=== PATIENT | male | born 1955 | race Caucasian/White ===

== ENCOUNTER → 2020-02-19 13:04 | Outpatient (BNVA) | payer SELFPAY | PROVIDERS: PCP Family Medicine; Visit Provider Internal Medicine Rheumatology | DX: M19.041 Primary osteoarthritis, right hand (principal); Z79.899 Other long term (current) drug therapy; Z11.59 Encounter for screening for other viral diseases; Z11.1 Encounter for screening for respiratory tuberculosis; M19.042 Primary osteoarthritis, left hand | CPT/HCPCS: 36415; 99204 ==

== ENCOUNTER 2020-02-19 14:35 | Outpatient (CLI) | payer OTHER, SELFPAY ==
--- NOTE | 2020-02-19 15:07 | XR_ITS ---
WS: [id number] RIGHT HAND: 3 VIEW(S) TECHNIQUE: PA, oblique and lateral. HISTORY: rheumatoid arthritis COMPARISON: 07/26/2016 Narrowing of the interphalangeal joints and the second and third metacarpal phalangeal joints. No def inite erosions. Mild narrowing of the first carpometacarpal joint. No soft tissue or bone abnormality. XR/XR hand RT min 3V* [id number] IMPRESSION: Findings most consistent with osteoarthritis, similar to the prior study.
--- NOTE | 2020-02-19 15:07 | XR_ITS ---
WS: [id number] LEFT HAND: 3 VIEW(S) TECHNIQUE: PA, oblique and lateral. HISTORY: rheumatoid arthritis COMPARISON: 07/26/2016 No acute fracture or dislocation. Mild narrowing of the interphalangeal joints. Mild hypertrophic bone formation involving the second a nd third metacarpal heads. No erosions. XR/XR hand LT min 3V* [id number] IMPRESSION: Mild osteoarthritis, similar to the prior study.
--- NOTE | 2020-02-19 15:07 | XR_ITS ---
WS: [id number] LEFT FOOT: 3 VIEW(S) TECHNIQUE: AP, oblique and lateral. HISTORY: rheumatoid arthritis COMPARISON: 07/26/2016 No acute fracture or dislocation. Mild interphalangeal joint space narrowing. No erosions. Hammertoe deformities. Enthesopathy Achilles tendon. No soft tissue abnormality or bone destruction. XR/XR foot LT min 3V* [id number] IMPRESSION: No erosions or osteopenia. Mild osteoarthritis.
--- NOTE | 2020-02-19 15:07 | XR_ITS ---
WS: [id number] CHEST 2 VIEWS HISTORY: rheumatoid arthritis COMPARISON: None available. Lungs: Clear with no abnormality. No pleural effusion or pneumothorax. Cardiac size: Normal. Mediastinum/Aorta: Calcified RIGHT paratracheal lymph node. Mild atherosclerosis aorta. Bones: Normal. XR/XR chest 2V* [id number] IMPRESSION: No acute cardiopulmonary disease. Mild atherosclerosis aorta.
--- NOTE | 2020-02-19 15:07 | XR_ITS ---
WS: [id number] RIGHT FOOT: 3 VIEW(S) TECHNIQUE: AP, oblique and lateral. HISTORY: rheumatoid arthritis COMPARISON: None available. No acute fracture or dislocation. Severe narrowing of the first metatarsophalangeal joint with osteophytes. Hammertoe deformities. No e rosions. Distal arterial calcifications. XR/XR foot RT min 3V* [id number] IMPRESSION: Advanced osteoarthritis at the first metatarsophalangeal joint. No erosions.
== END 2020-02-19 14:36 | disposition home or self-care (01) ==
PROVIDERS: PCP Family Medicine; Visit Provider Internal Medicine Rheumatology
DX: M05.9 Rheumatoid arthritis with rheumatoid factor, unspecified (principal); M19.042 Primary osteoarthritis, left hand; M19.072 Primary osteoarthritis, left ankle and foot; M19.071 Primary osteoarthritis, right ankle and foot; I70.0 Atherosclerosis of aorta; Z79.899 Other long term (current) drug therapy
CPT/HCPCS: 71046; 73130; 73630; 80076; 82306; 82565; 85025; 85651; 86140; 86431; 86480; 86704; 86803; 87340

== ENCOUNTER → 2020-03-19 10:33 | Outpatient (BNVA) | payer OTHER, SELFPAY | PROVIDERS: PCP Family Medicine; Visit Provider Internal Medicine Rheumatology | DX: M06.041 Rheumatoid arthritis without rheumatoid factor, right hand (principal); M06.042 Rheumatoid arthritis without rheumatoid factor, left hand; M19.041 Primary osteoarthritis, right hand; M19.042 Primary osteoarthritis, left hand; Z79.899 Other long term (current) drug therapy | CPT/HCPCS: 99214 ==

== ENCOUNTER → 2020-08-27 14:24 | Outpatient (BNVA) | payer OTHER, SELFPAY | PROVIDERS: PCP Family Medicine; Referring Provider Emergency Medicine Emergency Medical Services; Visit Provider Specialist | DX: M25.561 Pain in right knee (principal); M25.562 Pain in left knee; M17.0 Bilateral primary osteoarthritis of knee | CPT/HCPCS: 73560; 73565 ==

== ENCOUNTER 2020-09-04 14:48 | Outpatient (CLI) | payer OTHER, SELFPAY ==
--- NOTE | 2020-09-04 15:45 | MR_ITS ---
WS: [id number] MRI RIGHT KNEE NONCONTRAST AND CONTRAST TECHNIQUE: Axial PD, coronal PD fat sat, coronal PD, sagittal PD, and sagittal PD fat-sat images obta ined. Post gadolinium images were obtained. CLINICAL INFORMATION: M17.11 - Unilateral primary osteoarthritis, right knee COMPARISON: None. FINDINGS: Advanced osteoarthritis left knee with medial and lateral joint space narrowing slightly worse involv ing the medial joint compartment. Advanced chondromalacia. Moderate suprapatellar effusion. Distal qu adriceps and patella tendons are intact. Hypertrophic patella. Chronic tear of the ACL. No normal fib ers visualized. Normal PCL. Hypertrophic patella. Small amount of prepatellar soft tissue edema. Marked chronic thinning of the medial meniscus may be due to prior partial meniscectomy. Thinning of the lateral meniscus with blunting of the anterior horn and chronic intrasubstance signal abnormality . Hypertrophic changes along the joint line. Large popliteal cyst with calcified chondroid loose bodies. Lobulated popliteal cyst measures 3.7 x 2 .6 x 8.1 cm AP by transverse by craniocaudal. Associated peripheral enhancement likely inflammatory. Chronic synovial thickening along the posterior joint compartment with enhancement likely inflammator y. 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 Synovial thickening with associated erosive changes involving the intercondylar notch. Mild chondromalacia patella. No significant subchondral edema. Hypertrophic patella. MR/MR knee RT wo/w con [id number] IMPRESSION: 1. Chronic tear of the ACL with no normal fibers visualized. Associated soft t issue thickening. 2. Normal PCL. 3. Marked chronic thinning of the medial greater than lateral meniscus. Blunti ng of the medial meniscus may be due to prior meniscectomy. 4. Advanced degenerative arthritis medial and lateral joint compartments with advanced chondromalacia. 5. Large lobulated popliteal cyst with internal chondroid calcifications likel y due to secondary synovial chondromatosis. Cyst measures approximately 3.7 x 2 .6 x 8.1 cm AP by transverse by craniocaudal 6. Synovial thickening along the posterior joint compartment with erosive spencer ges along the intercondylar notch. 7. Moderate suprapatellar effusion with hypertrophic patella. 8. Mild to moderate chondromalacia patella.
[2020-09-04] MEDS: gadobenate dimeglumine 20 mL vial IV (16:41)
== END 2020-09-04 14:49 | disposition home or self-care (01) ==
PROVIDERS: PCP Family Medicine; Visit Provider Specialist
DX: M17.11 Unilateral primary osteoarthritis, right knee (principal); Z20.822 Contact with and (suspected) exposure to COVID-19; M22.41 Chondromalacia patellae, right knee; M25.461 Effusion, right knee; M71.21 Synovial cyst of popliteal space [Baker], right knee; S83.511A Sprain of anterior cruciate ligament of right knee, initial encounter; X58.XXXA Exposure to other specified factors, initial encounter
CPT/HCPCS: 73723; 87635; A9577

== ENCOUNTER 2020-09-09 12:02 | Observation (INO) | payer OTHER, SELFPAY ==
[2020-09-04 11:15] VITALS: BMI 32.1
[2020-09-04 11:36] LABS: Add Urine Microscopic? NO; Charge for UA Resulting for Rev
[2020-09-04 11:45] LABS: Basophils % 0.5 %; Eosinophils % 0.6 %; Hematocrit 44.1 % (42.0-52.0); Hemoglobin 14.5 g/dL (11.7-16.6); Lymphocytes # 0.6 10^3/uL (0.8-4.8); Mean Corpuscular HGB Conc 32.9 g/dL (30.0-36.0); Mean Corpuscular Hemoglobin 30.4 pg (28.0-34.0); Mean Corpuscular Volume 92.5 fL (80-94); Mean Platelet Volume 9.3 fL (7.4-10.4); Monocytes # 0.4 10^3/uL (0.2-0.9); Monocytes % 5.6 %; Neutrophils # 5.19 10^3/uL (1.8-7.7); Neutrophils % 83.8 %; Nucleated Red Blood Cells % 0 %; Platelet Count 251 10^3/cmm (130-400); Red Blood Count 4.77 10^6/uL (4.1-5.3); Red Cell Distribution Width 12.3 % (12.1-15.1); White Blood Count 6.2 10^3/uL (4.0-10.0)
[2020-09-04 11:56] LABS: Bilirubin Urine Neg (Negative); Blood Urine Neg (Negative); Glucose Urine UA Norm (Normal); Ketones Urine Negative (Negative); Leukocyte Esterase Urine Negative (Negative); Nitrate Urine Negative (Negative); Protein Urine Neg (Negative); Urine Appearance Clear (CLEAR); Urine Color Yellow (Yellow); Urobilinogen Urine Norm (Negative); pH Urine 5 (5-7)
[2020-09-04 12:07] LABS: Alanine Aminotransferase 21 U/L (0-41); Albumin Level 4.2 g/dL (3.5-5.2); Alkaline Phosphatase 69 IU/L (40-130); Anion Gap 11.6 (5-19); Aspartate Amino Transferase 20 U/L (0-40); Blood Urea Nitrogen 16 mg/dL (8-23); Calcium 8.6 mg/dL (8.5-10.5); Carbon Dioxide 28 mmol/L (22-29); Chloride 101 mmol/L (98-107); Globulin 2.3 g/dL (1.3-4.6); Glomerular Filtration Rate 136.1 mL/min (90-130); Glucose 104 mg/dL (65-115); Osmolality Calculated 285 mOsm/kg (285-295); Potassium 3.6 mmol/L (3.5-5.1); Sodium 137 mmol/L (136-145); Total Bilirubin 0.5 mg/dL (0.15-1.2); Total Protein 6.5 g/dL (6.6-8.7)
--- NOTE | 2020-09-04 13:58 | ANES.PREANE2 ---
Pre-Anesthetic Assessment Pre-Anesthetic Assessment: Height/Weight: Height 1.68 m Weight 90.265 kg Proposed Procedure: Operation Date: 09/09/20 07:00 Proposed Procedures p Total Knee Arthroplasty 61232 M17.10(Right) - Angelita Lopez MD Was Beta Javi taken within 24 hours: N/A Was Clonidine taken within 24 hours: N/A Social: Social History: No alcohol and No tobacco Exam: Pre-Anes Outpt Exam: alert, oriented x 3, clear to auscultation bilaterally and regular rate & rhythm Airway: Submandibular: WNL Cervical ROM: WNL MP: 3 Dentition: Full CV/HEM: CV/HEM: HTN GI: GI: GERD Metabolic: Metabolic: Morbid obesity Musc/skel: Musc/skel: OA/DJD and RA Comments: Chronic steroids Anesthetic Plan: ASA status: 3 Anesthesia: Regional (specify below) Other: SAB/adductor Risk of > 500 ml blood loss (7ml/kg in children): No PFSH Anesthesia PFSH: Medical History High risk medication use Hypertension Immunization counseling Inflammatory arthritis Joint pain Osteoarthritis of hands, 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 Surgical History No pertinent past surgical history Family History Other Gout Rheumatoid arthritis Denies family history of Diabetes Lupus CAD (coronary artery disease) Hyperlipidemia Chronic kidney disease (CKD) Lung disease Cancer Hypertension Stroke Social History Smoking and tobacco status: never smoked Alcohol intake: never History of recent travel: No Data Anesthesia CBC & Chem 7: 09/04/20 10:50 09/04/20 10:50 Other Labs: Laboratory Results - last 48 hr 09/04/20 09/04/20 09/04/20 10:45 10:50 10:50 WBC 6.2 RBC 4.77 Hgb 14.5 Hct 44.1 MCV 92.5 MCH 30.4 MCHC 32.9 RDW 12.3 Plt Count 251 MPV 9.3 Neut % (Auto) 83.8 Lymph % (Auto) 9.0 [place] % (Auto) 5.6 Eos % (Auto) 0.6 Baso % (Auto) 0.5 Neut # (Auto) 5.19 Lymph # (Auto) 0.6 L [place] # (Auto) 0.4 Eos # (Auto) 0.0 Baso # (Auto) 0.0 Nucleated RBC % (auto) 0 Nucleated RBCs # 0.0 Sodium 137 Potassium 3.6 Chloride 101 Carbon Dioxide 28 Anion Gap 11.6 BUN 16 Creatinine 0.6 L GFR Calculation 136.1 H Glucose 104 Calculated Osmolality 285 Calcium 8.6 Total Bilirubin 0.5 AST 20 ALT 21 Alkaline Phosphatase 69 Total Protein 6.5 L Albumin 4.2 Globulin 2.3 Urine Color Yellow Urine Appearance Clear Urine pH 5 Ur Specific [place] 1.010 Urine Protein Neg Urine Glucose (UA) Norm Urine Ketones Negative Urine Blood Neg Urine Nitrate Negative Urine Bilirubin Neg Urine Urobilinogen Norm Ur Leukocyte Esterase Negative Cardiac Studies: No Data to Display
[2020-09-09] VITALS (23 sets, daily range): BP systolic 98–170; BP diastolic 59–98; PULSE 66–90; RESP 12–18; TEMP 36.3–37.6; O2SAT 92–97
[2020-09-09] MEDS: CELEcoxib 200 mg Capsule 400 MG PO (06:12)
[2020-09-09] MEDS: sodium chloride 0.9% 1,000 ML 30 ML IV (06:12)
[2020-09-09] MEDS: acetaminophen 1,000 MG/100 ML PIGGYBACK 400 MG IV ×3 (06:17→20:59)
[2020-09-09] MEDS: midazolam 1 mg/mL INJ 5 ML 5 MG IVP (06:28)
--- NOTE | 2020-09-09 06:36 | P.ANESUD_ITS ---
Pre-Anesthetic Update Pre-Anesthetic Assessment: Date of Surgery/Procedure: 09/09/20 Preop Tran gnosis: Right knee DJD Proposed Procedure: Operation Date: 09/09/20 07:00 Proposed Procedures p Total Knee Arthroplasty 95355 M17.10(Right) - Angeliat Lopez MD Any changes to Pre-Anesthetic Assessment?: No Last Intake: Intake Last Liquid Date 09/08/20 Last Liquid Time 19:00 Last Solid Date 09/08/20 Last Solid Time 19:00 Vitals: Temperature 98.6 F 09/09/20 05:57 Temperature Source Temporal Artery S can 09/09/20 05:57 Pulse Rate 82 09/09/20 05:57 Pulse Rhythm 09/09/20 05:57 Pulse Strength 3+ Normal 09/09/20 05:57 Respiratory Rate 18 09/09/20 05:57 Blood Pressure 170/98 09/09/20 05:57 Blood Pressure Sonia n 122 09/09/20 05:57 Pulse Oximetry 96 09/09/20 05:57 Oxygen Delivery Me thod 09/09/20 05:57 Exam: Pre-Anes Outpt Exam: alert, oriented x 3, clear to auscultation bilaterally and regular rate & rhythm Cardiac Studies: No Data to Display
--- NOTE | 2020-09-09 06:36 | ANES.PROC ---
Anesthesia Procedures Procedure/Date: 09/09/20 Nerve Block ^: Nerve Block 1: Main Anesthesia: general anesthesia Time Out Performed: Yes Consent: requested by attending/covering physician, from patient and from other Nerve block location: adductor canal (R) Anesthesia monitors applied: pulse oximetry, EKG, BP cuff and oxygen Nerve block position: supine Anesthetic Used: ropivicaine 0.5% and with decadron (4 mg) Amount of anesthesia used (mL): 30 Ultrasound used to: recognize landmarks, visualize and ID brachial plexus and visualize and ID femerol nerve Nerve Stimulator Used?: No Interscalene/Femoral BLK: 4 stimuplex 21 g needle used for position and inplane approach, visualize local anesthetic spread and no vascular puncture identified Injection: neg aspiration of heme and paresthesia +/- Patient Tolerated Procedure: well and no complications Complications: none
--- NOTE | 2020-09-09 06:54 | P.HPUD_ITS ---
Surgery/Procedure H&P Update DATE OF PROCEDURE: September 09, 2020 DATE H&P PERFORMED: 08/27/20 H&P UPDATE INFORMATION: I have reviewed H&P completed within last 30 days, I have examined patient prior to procedure, No changes to prior documentation and H&P is in [facility] EMR on date indicated CHANGES TO PREVIOUS DOCUMENTATION: MRI reviewed as well. PREOP DIAGNOSIS: Right knee DJD PLANNED PROCEDURE: Operation Date: 09/09/20 07:00 Proposed Procedures p Total Knee Arthroplasty 55391 M17.10(Right) - Angelita Lopez MD Related Problem List Diagnoses (1) Osteoarthritis of right knee: Qualifiers: Osteoarthritis type: primary Qualified Code(s): M17.11 - Unilateral primary osteoarthritis, right knee
[2020-09-09] MEDS: ceFAZolin 1,000 mg SDV 1000 MG (09:56)
[2020-09-09] MEDS: vancomycin 1,000 MG SDV 1000 MG (09:57)
[2020-09-09] MEDS: fentaNYL 50 mcg/mL INJ 2mL IVP ×2 (11:49→11:54)
--- NOTE | 2020-09-09 11:51 | P.PCN_ITS ---
PACU note PACU note: VSS, Good respiratory effort, report to ALLOY WEIGHER Post-Anesthesia Exam: awake
--- NOTE | 2020-09-09 11:51 | PM.PACU ---
PACU note PACU note: VSS, Good respiratory effort, report to [employer] Post-Anesthesia Exam: awake
--- NOTE | 2020-09-09 12:01 | XR_ITS ---
WS: [id number] Exam: XR knee RT 1-2V [id number] Date/Time of Exam: 09/09/2020 12:01 PM Reason For Exam: s/p TKA Total knee arthroplasty has been performed and is in excellent position. Anterior surgical skin clips are noted. Postoperative changes in the adjacent soft tissues. Again noted are soft tissue calcifica tions along the medial posterior aspect of the knee apparently representing synovial osteochondromato sis. XR/XR knee RT 1-2V [id number] IMPRESSION: 1. Total knee replacement in excellent position.
--- NOTE | 2020-09-09 12:11 | P.OP_ITS ---
Operative Report Date of procedure: September 09, 2020 Pre-op Diagnosis: Right knee primary osteoarthritis Post-op diagnosis: same Post-op Findings: Severe degenerative change and loss of cartilage medially Procedure Done: Right total knee arthroplasty Implants: The [place] total knee system with a size 4 triathlon beaded posterior stabilized femur right, a triathlon titanium tibial component size 5 beaded, a triathlon X3 posterior stabilized tibial bearing insert size 5 X 13 mm and a beaded triathlon titanium asymmetric patella size 35 x 10 mm Specimens removed/disposition: Bone, disposed of Pathology: none sent Surgeon: Angelita Lopez Trade Mark Examiner: [facility] operating room technicians Anesthesia: MAC (With spinal anesthetic and regional block, ASA 3) Estimated blood loss (mL): 20 Tourniquet time (min): 99 Tourniquet time: At 250 mmHg IV fluids (mL): 1,000 Urine output (mL): 200 Complications: None Findings: Severe degenerative osteoarthritis of the right knee with complete obliteration of cartilage over the medial femoral condyle and medial tibial plateau Condition: stable Disposition: PACU (Then to floor for postoperative rehabilitation and pain management with initiation of therapy) Brief History: This 65-year-old man presented to the office with severe right knee pain which was incapacitating. He was unable to ambulate or perform reasonable activities of daily living. None of these activities were able to be accomplished comfortably. He was unresponsive to conservative measures and wished to proceed with right total knee arthroplasty risks and complications were discussed. Consents were signed preoperatively, and questions were answered. The patient wished to proceed. Procedure: The patient was brought to the operating theater, and after undergoing adequate spinal anesthesia with MAC and supplemented with regional block, ASA 3, the right lower extremity was prepped with Dura-Prep and draped in usual fashion following placement of a tourniquet high on the leg. The leg was then draped free. Following prepping and draping, the leg was exsanguinated, and the tourniquet was elevated to 250 mmHg for a total tourniquet time of 99 minutes. Prior to elevation of the tourniquet, but following exposure of the site of surgery, a surgical pause was performed. At the time of the surgical pause, we confirmed the site and side of surgery. Additionally, we confirmed the appropriate and timely administration of preoperative antibiotics, Ancef 2 g. and Transexemic acid 1 g. The availability of equipment was confirmed, and the patient's identity was verbalized as well. Following the surgical pause, an incision was made centering over the patella continuing proximally and distally as necessary to allow access to the knee joint. Dissection continued through skin and soft tissues using a scalpel. Hemostasis was obtained using electrocautery. The skin incision was followed by a median parapatellar arthrotomy. The leg was extended and the patella was everted. Following this, the leg was returned to flexed position. The distal femur was exposed, and a drill hole was made in this for placement of the distal femoral jig. The distal femoral jig was set at 5? of valgus. The distal femoral cutting block was then placed in appropriate position, and an christian wing was used to confirm an appropriate amount of distal femur would be resected. The di stal femoral resection was accomplished with 8 mm of bone being resected distally. After the distal femoral resection had been accomplished, the femur was measured and it measured a size 4. Medial lateral dimension also measured a size 4-5. A size 4 femoral cutting block was placed in position, and we were then able to accomplish the anterior, posterior and chamfer cuts. This jig was then removed and the notch guide was placed in position. With the notch guide in appropriate position, the notch was excised including resection of the anterior and posterior cruciate ligaments. This notch was to allow for the posterior stabilized femoral component. At this point, the femur was prepared and attention was directed to the proximal tibia. The posterior knee retractor was placed along with medial and lateral retractors. Further resection of the menisci was accomplished as we had better visualization. A complete meniscectomy was performed both medially and laterally with care being taken to protect the popliteus. Retractors were then placed so that the proximal tibia was well visualized. A drill hole was then made in the tibia for placement of the intramedullary guide. This guide was placed so that approximately 2 mm of bone would be resected from the deficient medial tibial plateau. The intramedullary guide was utilized supplemented with an extramedullary guide to assure appropriate alignment for the proximal tibial resection. The proximal tibial jig was then evaluated, pinned in position, and the proximal tibial resection was accomplished without difficulty. The jig was removed, and the proximal tibia was measured. It measured a size 5. We then attempted a trial reduction with a size 5 by 11 mm insert. Osteophytes were also removed from the tibia. The femoral component was placed in position for the trial reduction, and the knee was placed through range of motion. With this, there was appropriate patellar tracking. The knee was found to be slightly tight in the medial aspect, and medial release was accomplished. Extension was noted to be full as well. After the knee was manipulated following the medial release, we were able to insert a size 5 x 13 mm insert. With this we had excellent varus valgus alignment and full extension. The knee was stable to varus valgus stress as well. Therefore, this was the chosen component. There was full extension and flexion without lift off and the rotation of the tibia was marked. Alignment was checked from the hip to the ankle, and this was noted to be appropriate as well. Attention was then directed to the patella. The patella was measured with a caliper. We resected sufficient patella to leave approximately 14 mm of patella remaining. Measurements of the patella then indicated that a size asymmetric 35 mm x 10 mm was the appropriate patellar size. We then placed the jig to drill for the 3 pegs of the press-fit patella, and these drill holes were made without incident. A trial patella was then placed, and the knee was placed through range of motion. The patella was noted to track nicely without evidence of subluxation. The femur was prepared for a press-fit femur by drilling 2 holes for the femoral pegs. All trial components were subsequently removed. The tibial tray was then pinned into position, and we broached the tibia for the stem of the tibial component. Subsequently, 4 drill holes were made for placement of the press-fit tibia. This was accomplished without difficulty. Care was taken to assure appropriate rotation of the tibia as well as appropriate position on the proximal tibia. The tibial tray was completely seated on the proximal tibia. Following broaching, the tibial guide was removed, and all surfaces were copiously irrigated. The surfaces were then dried and a bone plug was placed into the distal femur. Exparel was also injected at this point. The Tritanium tibia was impacted into position. The beaded femur was then impacted into position in a cementless fashion. The tibial insert was placed. The patella was pressed into position with a patellar clamp. The knee was irrigated with 20 mL of Betadine and 500 mL of normal saline, and this was allowed to remain in the knee for 3-4 minutes. The knee was then copiously irrigated and suctioned dry. Attention was then directed to closure. Closure was accomplished with 0 Vicryl in the fascial tissues. Following this, a 2-0 Monocryl was used in the subcutaneous tissues, and the skin was closed with skin taina. A sterile dressing was then placed consisting of Dermabond Prineo, Telfa, 4x4's, ABD, sterile soft roll, and an Magnus wrap. The patient was returned the Recovery Room in a satisfactory condition. X-rays were obtained there. The patient will be discharged to the floor for postoperative rehabilitation and pain management. Associated Problem List Diagnoses (1) Osteoarthritis of right knee: Qualifiers: Osteoarthritis type: primary Qualified Code(s): M17.11 - Unilateral primary osteoarthritis, right knee
--- NOTE | 2020-09-09 12:41 | SUR.PHASEI ---
1204 PT HAS SENSATION/MOVEMENT TO R. FOOT, PEDAL PULSE PALPATED, CAP REFILL <3 SEC, FIRST ICE APPLIED
--- NOTE | 2020-09-09 12:58 | PC.NURSE ---
1245 OR NOTE UP VIA BED FROM OR WITH PRICILLA AZUL AT SIDE - ALERT AND ORIENTATED - AT SIDE - SEE ADMISSION PHYSICAL ASSESSMENT FOR DETAILS
[2020-09-09] MEDS: chlorhexidine gluconate 0.12% Btl 473 mL 30 ML MUCOUS MEM ×3 (13:02→20:57)
[2020-09-09] MEDS: oxyCODONE 5 mg IR Tab/Cap PO ×2 (13:21→17:45)
--- NOTE | 2020-09-09 14:18 | ANE.PACU2 ---
Inpatient post-anesthesia follow up: Airway intact: Yes Vital signs: Temperature 97.4 F Pulse Rate 67 Respiratory Rate 18 Blood Pressure 132/80 Pulse Oximetry 97 Oxygen Delivery Me thod Room Air Oxygen Flow Rate Fraction of Inspir ed Oxygen Hydration adequate: Yes Nausea and vomiting: No Pain level: 1 Mental status: Baseline
[2020-09-09] MEDS: sennosides-docusate Tablet 2 TAB PO (16:41)
[2020-09-09] MEDS: iron polysaccharide complex 150 mg Capsule PO (16:41)
[2020-09-09] MEDS: sulfaSALAzine 500 mg Tablet 1000 MG PO (16:41)
[2020-09-09] MEDS: CELEcoxib 200 mg Capsule PO (16:41)
[2020-09-09] MEDS: calcium carbonate 500 mg Chew Tablet 1000 MG PO (16:42)
[2020-09-09] MEDS: hydroxychloroquine 200 mg Tablet PO (17:45)
[2020-09-10] VITALS (8 sets, daily range): BP systolic 122–136; BP diastolic 70–76; PULSE 72–81; RESP 16–18; TEMP 36.6–37.1; O2SAT 18–97
[2020-09-10 02:18] LABS: Basophils % 0.3 %; Eosinophils % 0.3 %; Hematocrit 33.6 % (42.0-52.0); Hemoglobin 11.2 g/dL (11.7-16.6); Lymphocytes % 11.9 %; Mean Corpuscular HGB Conc 33.3 g/dL (30.0-36.0); Mean Corpuscular Hemoglobin 31.1 pg (28.0-34.0); Mean Corpuscular Volume 93.3 fL (80-94); Monocytes # 0.9 10^3/uL (0.2-0.9); Monocytes % 9.9 %; Neutrophils # 6.73 10^3/uL (1.8-7.7); Neutrophils % 77.1 %; Nucleated Red Blood Cells % 0 %; Platelet Count 224 10^3/cmm (130-400); Red Cell Distribution Width 12.3 % (12.1-15.1); White Blood Count 8.7 10^3/uL (4.0-10.0)
[2020-09-10] MEDS: oxyCODONE 5 mg IR Tab/Cap PO ×3 (02:38→10:12)
[2020-09-10 02:40] LABS: Anion Gap 9.2 (5-19); Blood Urea Nitrogen 20 mg/dL (8-23); Calcium 7.7 mg/dL (8.5-10.5); Carbon Dioxide 28 mmol/L (22-29); Chloride 105 mmol/L (98-107); Glomerular Filtration Rate 113.9 mL/min (90-130); Glucose 110 mg/dL (65-115); Osmolality Calculated 291 mOsm/kg (285-295); Potassium 3.2 mmol/L (3.5-5.1); Sodium 139 mmol/L (136-145)
[2020-09-10] MEDS: CELEcoxib 200 mg Capsule PO (05:36)
[2020-09-10] MEDS: acetaminophen 1,000 MG/100 ML PIGGYBACK 400 MG IV (05:36)
[2020-09-10] MEDS: calcium carbonate 500 mg Chew Tablet 1000 MG PO (08:29)
[2020-09-10] MEDS: losartan 50 mg Tablet 100 MG PO (08:29)
[2020-09-10] MEDS: pantoprazole DR 40 mg Tablet PO (08:29)
[2020-09-10] MEDS: hydroxychloroquine 200 mg Tablet PO (08:29)
[2020-09-10] MEDS: iron polysaccharide complex 150 mg Capsule PO (08:29)
[2020-09-10] MEDS: sulfaSALAzine 500 mg Tablet 1000 MG PO (08:29)
[2020-09-10] MEDS: predniSONE 5 mg Tablet PO (08:30)
[2020-09-10] MEDS: folic acid 1 mg Tablet PO (08:30)
[2020-09-10] MEDS: hydroCHLOROthiazide 25 mg Tablet PO (08:30)
[2020-09-10] MEDS: cholecalciferol (vitamin D3) 1,000 unit Tablet 1000 UNIT PO (08:30)
[2020-09-10] MEDS: multivitamin therapeutic Tablet 1 TAB PO (08:30)
[2020-09-10] MEDS: aspirin 325 mg EC Tablet PO (08:30)
[2020-09-10] MEDS: sennosides-docusate Tablet 2 TAB PO (08:30)
[2020-09-10] MEDS: chlorhexidine gluconate 0.12% Btl 473 mL 30 ML MUCOUS MEM ×2 (08:30→12:18)
[2020-09-10] MEDS: HYDROcodone-acetaminophen 10-325 mg Tablet 1 TAB PO (11:34)
--- NOTE | 2020-09-10 11:41 | PC.NURSE ---
DR DARIEL VIEIRA PREVIOUSLY NOTIFIED OF PTS INCREASE IN PAIN - NEW ORDERS REC'D
--- NOTE | 2020-09-10 13:50 | PM.DCS ---
Discharge Providers Date of Admission: 09/09/20 12:02 Date of Discharge: September 10, 2020 Attending Provider at Admission: Angelita Lopez MD Attending Provider at Discharge: Angelita Lopez MD Primary Care Provider: Jaime Currie Diagnoses at Discharge Discharge Diagnosis (1) Osteoarthritis of right knee: Status: Acute Qualifiers: Osteoarthritis type: primary Qualified Code(s): M17.11 - Unilateral primary osteoarthritis, right knee (2) History of total right knee replacement: Status: Acute Reason for Visit Reason for Visit: Osteoarthritis right knee Hospital Course Hospital Course This 65-year-old gentleman was admitted for same-day surgery for the following procedure: Right total knee arthroplasty with the following Implants: The [employer] total knee system with a size 4 triathlon beaded posterior stabilized femur right, a triathlon titanium tibial component size 5 beaded, a triathlon X3 posterior stabilized tibial bearing insert size 5 X 13 mm and a beaded triathlon titanium asymmetric patella size 35 x 10 mm. Postoperatively, the patient was admitted to the floor under observation status. He had excellent pain management through the night as long as his block was working, but he did have an increase in pain this morning. He had been taking oxycodone but that his pain was better controlled with hydrocodone. He therefore will be discharged on the hydrocodone as his primary pain medication. Additionally, he will be discharged on Celebrex. He will follow up with me as scheduled. On physical examination, there was no evidence of infection, significant bruising, drainage, or other issue of concern. Physical Exam Const: COMMON NORMALS: no acute distress, average body habitus, patient oriented x3 and alert GENERAL APPEARANCE: cooperative and comfortable ORIENTATION/CONSCIOUSNESS: Yes awake HENMT: COMMON NORMALS: normocephalic and atraumatic HEAD & SCALP: normocephalic and atraumatic Eye: GENERAL EYE: appearance normal, both eyes and all related structures Chest: COMMONS NORMALS: normal inspection of the chest Resp: COMMON NORMALS: normal respiratory effort EFFORT & INSPECTION: Yes able to speak in complete sentences and Yes symmetric chest movement Extremity: RIGHT LOWER EXTREMITY: Yes knee joint (Minimal swelling about the knee. Some bruising.) Right knee: Yes inspection (No drainage.), Yes palpation (Slight tenderness to palpation about the knee.), Yes ROM (Able to straight leg raise.) and Yes neurovascular exam Neuro: COMMON NORMALS: patient oriented x3 SENSORIUM/ORIENTATION: Yes alert Psych: COMMON NORMALS: mental status grossly normal APPEARANCE: Yes grossly normal ATTITUDE: Yes calm and Yes engaged ATTENTION/CONCENTRATION: Yes attention grossly intact Skin: COMMON NORMALS: no rashes or lesions noted GENERAL SKIN EXAM: no rashes or lesions noted Urinary Catheter Management^: Castillo: Cath Placed During This Visit: yes Reason for Continuing Indwelling Catheter: Required Immobilization for Trauma or Surgery or Anesthesia Urinary Catheter Date of Insertion: 09/09/20 Urinary Catheter Time of Insertion: 09:40 Discharge Data Data Completed and Pending: Completed Studies During Hospitalization Category Date Time Status XR knee RT 1-2V 7 3560 Urgent Exams 09/09/20 12:01 Completed Pending at discharge Category Date Time Status Complete Blood Co unt w/Auto AM LABS Lab 09/11/20 04:00 Ordered Complete Blood Co unt w/Auto AM LABS Lab 09/12/20 04:00 Ordered Complete Blood Co unt w/Auto Routine Lab 09/04/20 10:25 Uncollected Labs from last 24 hours 09/10/20 09/10/20 02:12 02:12 WBC 8.7 RBC 3.60 L Hgb 11.2 L Hct 33.6 L MCV 93.3 MCH 31.1 MCHC 33.3 RDW 12.3 Plt Count 224 MPV 9.0 Neut % (Auto) 77.1 Lymph % (Auto) 11.9 [place] % (Auto) 9.9 Eos % (Auto) 0.3 Baso % (Auto) 0.3 Neut # (Auto) 6.73 Lymph # (Auto) 1.0 [place] # (Auto) 0.9 Eos # (Auto) 0.0 Baso # (Auto) 0.0 Nucleated RBC % (a uto) 0 Nucleated RBCs # 0.0 Sodium 139 Potassium 3.2 L Chloride 105 Carbon Dioxide 28 Anion Gap 9.2 BUN 20 Creatinine 0.7 GFR Calculation 113.9 Glucose 110 Calculated Osmolal ity 291 Calcium 7.7 L Vitals: Last Vital Signs Temp 98.1 F 09/10/20 11:48 Pulse 77 09/10/20 11:48 Resp 16 09/10/20 11:48 BP 136/76 09/10/20 11:48 Pulse Ox 95 09/10/20 11:48 Discharge Plan Discharge Patient Disposition: Home Health Service Condition: Stable Prescriptions: New celecoxib 200 mg Capsule 200 mg PO Q12H Qty: 60 RF: 0 aspirin 325 mg Tablet,Delayed Release (Dr/Ec) 325 mg PO DAILY 30 Days Qty: 0 RF: 0 hydrocodone-acetaminophen 10-325 mg tablet 1 - 2 tab PO Q4H PRN (Reason: pain) Qty: 40 RF: 0 Continued losartan 100 mg tablet 100 mg PO DAILY RF: 0 hydrochlorothiazide 25 mg tablet 25 mg PO DAILY RF: 0 folic acid 1 mg tablet 1 mg PO DAILY Qty: 90 RF: 1 methotrexate sodium 2.5 mg tablet 15 mg PO .Q7days Qty: 80 RF: 0 meloxicam [Mobic] 15 mg tablet 15 mg PO DAILY Qty: 30 RF: 0 sulfasalazine 500 mg tablet 1 g PO BID Qty: 360 RF: 0 hydroxychloroquine 200 mg tablet 200 mg PO BID Qty: 180 RF: 0 pantoprazole 40 mg tablet,delayed release (DR/EC) 40 mg PO DAILY Qty: 90 RF: 0 prednisone 5 mg tablet 5 mg PO DAILY Qty: 90 RF: 0 prednisone 5 mg tablet See Rx Instructions PO .COMPLEX PRN (Reason: joint pain flare) Qty: 60 RF: 0 (DME) WALKER See Rx Instructions .ROUTE .MEDSUPPLY Qty: 1 RF: 0 Discontinued hydrocodone-acetaminophen 5-325 mg tablet 1 tab PO Q8H PRN (Reason: Pain) RF: 0 Discharge Orders: Discharge Order (Routine); Ordered 09/10/20 Ordered By: Angelita Lopez Other Ambulatory Orders: DME: Walker (Order) Location: None Selected Ordered By: Angelita Lopez Referrals: Angelita Lopez MD [Physician] - 09/26/20 11:15 am (This will be for a nurse visit. You will then f/u with me on October 01 at 11:45AM for x-rays and a visit with me.) Discharge Diet: Advance as tolerated and Usual diet Discharge Activity: Increase activity as tolerated, Limit activity as instructed, Use walker/crutches as instructed and As per PT/OT instructions Patient Instructions: Hydrocodone/Acetaminophen (By mouth), Aspirin (By mouth), Celecoxib (By mouth), Total Knee Replacement (DC), Opioid Safety Activity Restrictions/Additional Instructions: Ice and elevate right lower extremity. Range of motion, gait training and strengthening per PT. Discharge Attestations Time Spent in Discharge Care*: greater than 30 min Specific Discharge Activities: educating patient, educating and/or supporting family/caregiver, documenting/other paperwork and evaluating patient/reviewing data Quality Metrics Clinical Quality Measures During this hospital stay, did patient experience: None Coding Level of Care Code Acute Chg FW DC note Diagnoses Osteoarthritis of right knee M17.11 Osteoarthritis type: primary History of total right knee replacement Z96.651
--- NOTE | 2020-09-10 13:59 | PC.SOCIAL ---
Donation walker was given to patient as [facility] patient before discharge. Patient signed walker release form and it was placed in binder in closet.
[2020-09-10] MEDS: acetaminophen 500 mg Tablet 1000 MG PO (14:54)
--- NOTE | 2020-09-10 15:05 | PC.NURSE ---
DISCHARGE INSTRUCTIONS DISCHARGE INSTRUCTIONS GIVEN TO PT AND - BOTH VERBALIZE UNDERSTANDING - SCRIPTS SENT TO [facility] - PT AWARE
== END 2020-09-10 15:24 | disposition home health service (06) ==
LOC: MEDSURG 12:02
PROVIDERS: Admitting Provider Specialist; PCP Family Medicine; Visit Provider Specialist
PROC: (CPT 27447; principal; 2020-09-09 07:00)
DX: M17.11 Unilateral primary osteoarthritis, right knee (principal); I10 Essential (primary) hypertension; K21.9 Gastro-esophageal reflux disease without esophagitis; E66.01 Morbid (severe) obesity due to excess calories; Z68.32 Body mass index [BMI] 32.0-32.9, adult; Z79.52 Long term (current) use of systemic steroids
CPT/HCPCS: 27447; 36415; 64447; 73560; 76942; 80048; 80053; 81003; 85025; 96365; 96374; 97110; 97116; 97161; 97165; C1776; C9290; G0378; J0690; J1100; J2250; J2704; J2795; J3010; J3370; J3490; J7030; J7512

== ENCOUNTER → 2020-10-01 12:06 | Outpatient (BNVA) | payer OTHER, SELFPAY | PROVIDERS: PCP Family Medicine; Visit Provider Specialist | DX: M17.12 Unilateral primary osteoarthritis, left knee (principal); Z96.651 Presence of right artificial knee joint | CPT/HCPCS: 73560; 73565 ==

== ENCOUNTER → 2020-11-06 09:03 | Outpatient (BNVA) | payer OTHER, SELFPAY | PROVIDERS: PCP Family Medicine; Visit Provider Specialist | DX: Z96.651 Presence of right artificial knee joint (principal); M17.0 Bilateral primary osteoarthritis of knee | CPT/HCPCS: 73560; 73565 ==

== ENCOUNTER → 2020-12-22 09:12 | Outpatient (BNVA) | payer OTHER, SELFPAY | PROVIDERS: PCP Family Medicine; Visit Provider Specialist | DX: Z96.651 Presence of right artificial knee joint (principal) | CPT/HCPCS: 73560; 73565 ==

== ENCOUNTER → 2021-10-01 08:25 | Outpatient (BNVA) | payer OTHER, SELFPAY | PROVIDERS: PCP Family Medicine; Visit Provider Nurse Practitioner Family | DX: M17.12 Unilateral primary osteoarthritis, left knee (principal); Z96.651 Presence of right artificial knee joint | CPT/HCPCS: 73560; 73565; 99213 ==

== ENCOUNTER 2024-07-19 11:08 | Outpatient (CLI) | payer OTHER, SELFPAY ==
--- NOTE | 2024-07-19 11:27 | XR_ITS ---
WS: [email or web address] XR hand RT 2V [id number] REASON FOR EXAM: DEGENERATIVE JOINT DZ FINDINGS: No fracture or focal bone lesion. No periosteal reaction or bone erosion. Moderate narrowing of the joint space with moderate subchondral sclerosis and osteophytosis in the DIP joints of the fingers and thumb. Similar but more severe arthropathic change in the fifth PIP joint. Similar arthropathy with subluxation in the MCP joints of the second through the fourth fingers. Significant subchondral sclerosis and cystic change at these MCP joints. Similar arthropathic change in the MCP and CMC joint of the thumb. XR/XR hand RT 2V [id number] IMPRESSION: Significant osteoarthritis of the right hand as above.
--- NOTE | 2024-07-19 11:27 | XR_ITS ---
WS: [email or web address] XR shoulder LT min 2V* [id number] REASON FOR EXAM: DEGENERATIVE JOINT DZ FINDINGS: No fracture or focal bone lesion. Moderate narrowing of the acromioclavicular joint with moderate subchondral sclerosis and osteophytosis. Glenohumeral joint space is not well demonstrated but likely is significantly narrowed. There is significant subchondral sclerosis and cystic change in the glenoid and there is significant osteophytosis of the humeral head. There is significant sclerosis and cystic change in the greater tuberosity. There is severe narrowing of the humeral acromial interval and the humeral head may be eroding the under surface of the acromial process. XR/XR shoulder LT min 2V* [id number] IMPRESSION: Moderate osteoarthritis of the acromioclavicular joint. Significant osteoarthritis of the glenohumeral joint. Severe rotator cuff tendon arthropathy likely with complete rotator cuff tendon tear.
--- NOTE | 2024-07-19 11:27 | XR_ITS ---
WS: [email or web address] XR shoulder RT min 2V* [id number] REASON FOR EXAM: DEGENERATIVE JOINT DZ FINDINGS: No fracture or focal bone lesion. The acromioclavicular joint space is intact with mild subchondral sclerosis and osteophytosis. The glenohumeral joint space is not well demonstrated but would appear to be significantly narrowed. There is significant subchondral sclerosis and cystic change in the glenoid. There is moderate osteophytosis of the humeral head. There is significant sclerosis and cystic change in the greater tuberosity. There is a reduction in the humeral acromial interval. XR/XR shoulder RT min 2V* [id number] IMPRESSION: Mild osteoarthritis in the acromioclavicular joint. Significant osteoarthritis in the glenohumeral joint. Significant rotator cuff tendon arthropathy and likely severe rotator cuff tend inosis possibly with complete tear.
--- NOTE | 2024-07-19 11:27 | XR_ITS ---
WS: [id number] XR knee LT 3V* [id number] REASON FOR EXAM: DEGENERATIVE JOINT DZ FINDINGS: Joint effusion No fracture or focal bone lesion. Severe narrowing of the medial knee joint space, [id number] articulation, with significant subchondral sclerosis and osteophytosis. Mild medial shift of the femur. Severe narrowing of the lateral knee joint space with significant subchondral sclerosis and moderate osteophytosis. Mild narrowing of the lateral patellofemoral joint space with significant subchondral sclerosis and osteophytosis of the patella. Large opposing osteophytes of the femoral condyles. Loose body in the posterior joint. XR/XR knee LT 3V* [id number] IMPRESSION: Severe osteoarthritis with [id number] articulation in the medial knee joint s pace as above.
--- NOTE | 2024-07-19 11:27 | XR_ITS ---
WS: [email or web address] XR hand LT 2V [id number] REASON FOR EXAM: DEGENERATIVE JOINT DZ FINDINGS: No fracture or focal bone lesion. No erosion or periosteal reaction. Moderate narrowing of the joint space with mild to moderate subchondral sclerosis and osteophytosis in the DIP joints of the fingers and thumb. Similar arthropathic change in the fifth PIP joint. Similar arthropathic change in the MCP joints of the second and third fingers with subluxation. Similar arthropathy in the MCP joint of the thumb. Similar but more severe arthropathic change in the CMC joint of the thumb. XR/XR hand LT 2V [id number] IMPRESSION: Osteoarthritis of the left hand as above.
== END 2024-07-19 11:09 | disposition home or self-care (01) ==
PROVIDERS: PCP Family Medicine
DX: M19.012 Primary osteoarthritis, left shoulder (principal); M19.011 Primary osteoarthritis, right shoulder; R93.6 Abnormal findings on diagnostic imaging of limbs; M25.712 Osteophyte, left shoulder; M25.711 Osteophyte, right shoulder; M17.12 Unilateral primary osteoarthritis, left knee; M25.762 Osteophyte, left knee; M19.042 Primary osteoarthritis, left hand; M19.041 Primary osteoarthritis, right hand
CPT/HCPCS: 73030; 73120; 73562